=== PATIENT | female | born 1950 | race Caucasian/White ===

== ENCOUNTER → 2017-10-30 13:26 | Outpatient (CLI) | payer MEDICARE, OTHER, SELFPAY ==
[2017-10-30 15:43] LABS: Absolute Lymphocyte Count 2.55 X10^3/ul (0.83-4.51); Absolute Neutrophil Count 3.5 X10^3/uL (2.0-7.7); Basophil# 0.01 X10^3/uL; Basophil% 0.2 % (0-1); Eosinophil# 0.04 X10^3/uL; Eosinophils% 0.6 % (0-5); Hematocrit 49.3 % (37-47); Hemoglobin 16.1 g/dl (12.0-15.0); Lymphocyte # 2.55 X10^3/ul (4.0); Mean Corp Hgb Conc 32.7 g/gl (32-36); Mean Corpuscular Hgb 29.5 pg (27.0-32.0); Mean Corpuscular Volume 90.3 fL (81-99); Mean Platelet Vol. 11.5 fl (6.2-12.0); Monocyte# 0.46 X10^3/uL; Neutrophil # 3.48 X10^3/uL (2.7-7.7); Neutrophil % 53.2 % (47-70); Platelet Count 182 K/mm3 (150-450); RBC Distribution Width CV 13.7 % (11.6-14.6); RBC Distribution Width SD 44.5 fl (35.1-43.9); Red Blood Count 5.46 M/mm3 (4.2-5.4); White Blood Count 6.5 K/mm3 (4.4-11.0)
[2017-10-30 15:52] LABS: POSITIVE COUNT NO; POSITIVE DIFFERENTIAL NO; POSITIVE MORPHOLOGY NO
[2017-10-30 16:03] LABS: Hemoglobin A1c 9.7 % (4.2-6.3)
[2017-10-30 16:12] LABS: AST(SGOT) 17 U/L (15-37); Alanine Aminotransfer ALT/SGPT 35 U/L (13-56); Albumin, Serum 3.9 g/dL (3.2-5.0); Alkaline Phosphatase 64 U/L (45-117); Anion Gap 9 (5-15); BUN 14 mg/dL (7-18); BUN/Creat Ratio 16.8 RATIO (10-20); Calcium,Total 9.1 mg/dL (8.5-10.1); Chloride 103 mmol/L (98-107); Cholesterol 188 mg/dL (200); Creatinine, Serum 0.83 mg/dL (0.55-1.02); EST Glomerular Filtration Rate 72 mL/min (>60); Est Glom Filt Rate - Afr Amer 88 mL/min (>60); Globulin 3.9 g/dL (2.2-4.2); Glucose 191 mg/dL (74-106); High Density Lipoprotein 40 mg/dL; Potassium 3.9 mmol/L (3.5-5.1); Protein, Total 7.8 g/dL (6.4-8.2); Sodium Level 140 mmol/L (136-145); Thyroid Stim Hormone (TSH) 2.02 uIU/mL (0.358-3.74); Triglycerides 100 mg/dL; Very Low Density Lipoprotein 20 mg/dL (5-40)
== END ==
PROVIDERS: Visit Provider Family Medicine
DX: I10 Essential (primary) hypertension (principal)
CPT/HCPCS: 36415; 80053; 80061; 83036; 84443; 85025

== ENCOUNTER → 2017-11-22 10:19 | Outpatient (CLI) | payer MEDICARE, OTHER, SELFPAY ==
--- NOTE | 2017-11-22 10:23 | BI_ITS ---
MAMMOGRAPHY - BILATERAL SCREENING REASON FOR EXAM: Female, 67 years old. Routine annual screening examination. PERTINENT HISTORY: Mother with breast cancer. TECHNIQUE: Digital bilateral breast meggan (3D mammographic acquisition) in the CC and MLO projections. 2-D mediolateral oblique (MLO) and craniocaudad (CC) views of both breasts were obtained. CAD: Full Field Digital Mammography with Computer Added Detection was performed. COMPARISON: Comparison is made with prior examination dated August 06, 2014 and December 05, 2012. FINDINGS: Breast Composition: There are scattered areas of fibroglandular density. There are no dominant masses or suspicious calcifications. Stable appearance of the small bilateral axillary lymph nodes. No other significant abnormalities are identified. There has been no significant change since the prior study. BI/SCREENING MAMM (CAD), BILAT IMPRESSION: Stable bilateral screening mammogram. Yearly follow-up mammogram recommended. (A) ASSESSMENT CATEGORY: BIRADS Category 1: Negative. A letter regarding these results will be sent to the patient by the facility within 30 days. Approximately 10% of breast cancers are not detected by mammography. A normal mammogram should not delay biopsy of a clinically suspicious abnormality. [id number] Electronically Signed: Yonathan Liao MD at 11:34 EDT Tel [phone], Service support ,
== END ==
PROVIDERS: Family Provider Family Medicine; PCP Family Medicine; Visit Provider Family Medicine
DX: Z12.31 Encounter for screening mammogram for malignant neoplasm of breast (principal)
CPT/HCPCS: 77063; 77067

== ENCOUNTER → 2018-01-31 09:41 | Outpatient (CLI) | payer MEDICARE, OTHER, SELFPAY ==
[2018-01-31 12:36] LABS: Cholesterol 181 mg/dL (200); High Density Lipoprotein 43 mg/dL; Triglycerides 99 mg/dL; Very Low Density Lipoprotein 20 mg/dL (5-40)
[2018-01-31 12:43] LABS: Microalbumin:Creatinine Ratio 9.6 mg/g CRE (<30 mg/g CRE)
== END ==
PROVIDERS: Family Provider Family Medicine; PCP Family Medicine; Visit Provider Family Medicine
DX: E11.9 Type 2 diabetes mellitus without complications (principal)
CPT/HCPCS: 36415; 80061; 82043; 82570

== ENCOUNTER 2018-03-28 11:00 | Outpatient (RCR) | payer MEDICARE, OTHER, SELFPAY | END 2018-03-28 23:59 | LOC: DC 11:00 | PROVIDERS: Family Provider Family Medicine; PCP Family Medicine; Visit Provider Family Medicine | DX: E11.65 Type 2 diabetes mellitus with hyperglycemia (principal); Z71.3 Dietary counseling and surveillance | CPT/HCPCS: 97802; G0108 ==

== ENCOUNTER → 2019-08-07 09:10 | Outpatient (CLI) | payer MEDICARE, OTHER, SELFPAY ==
[2019-08-07 12:38] LABS: AST(SGOT) 18 U/L (15-37); Alanine Aminotransfer ALT/SGPT 25 U/L (13-56); Albumin, Serum 3.8 g/dL (3.2-5.0); Alkaline Phosphatase 55 U/L (45-117); Anion Gap 4 (5-15); BUN 14 mg/dL (7-18); BUN/Creat Ratio 19.3 RATIO (10-20); Calcium,Total 9.2 mg/dL (8.5-10.1); Chloride 107 mmol/L (98-107); Cholesterol 200 mg/dL (200); Creatinine, Serum 0.72 mg/dL (0.55-1.02); EST Glomerular Filtration Rate 85 mL/min (>60); Est Glom Filt Rate - Afr Amer 102 mL/min (>60); Globulin 3.9 g/dL (2.2-4.2); Glucose 137 mg/dL (74-106); High Density Lipoprotein 55 mg/dL; Potassium 3.7 mmol/L (3.5-5.1); Protein, Total 7.7 g/dL (6.4-8.2); Sodium Level 140 mmol/L (136-145); Triglycerides 91 mg/dL; Very Low Density Lipoprotein 18 mg/dL (5-40)
[2019-08-07 12:47] LABS: Microalbumin,Random Urine 26.3 mg/L (NO RANGE EST.); Microalbumin:Creatinine Ratio 14.6 mg/g CRE (<30 mg/g CRE)
== END ==
PROVIDERS: PCP Family Medicine; Visit Provider Family Medicine
DX: E11.9 Type 2 diabetes mellitus without complications (principal)
CPT/HCPCS: 36415; 80053; 80061; 82043; 82570

== ENCOUNTER → 2019-11-10 08:21 | Outpatient (CLI) | payer MEDICARE, OTHER, SELFPAY ==
--- NOTE | 2019-11-10 08:25 | BI_ITS ---
MAMMOGRAPHY - BILATERAL SCREENING 3-D TOMOSYNTHESIS REASON FOR EXAM: Female, 69 years old. Routine screening PERTINENT HISTORY: FAM HX MOTHER AGE 89, LOST 40# -- LT STEREO BX 2000, SKIN TAGS REMOVED 10+ YRS. AGO. TECHNIQUE: 2-D mammograms and 3-D Tomosynthesis of the breast (s) were performed. CAD was performed. COMPARISON: 11/22/2017 FINDINGS: The breast composition is composed of scattered fibroglandular density. Scattered benign calcifications are seen. No dense spiculated masses or suspicious microcalcifications are identified. No architectural distortion is identified. There is no skin thickening or retraction. There has been no significant change since the prior study. BI/SCREEN MAMM (CAD) W/MARGE BILAT IMPRESSION: No mammographic signs of malignancy. Routine yearly mammograms recommended. ASSESSMENT CATEGORY: BIRADS Category 1: Negative. A letter regarding these results will be sent to the patient by the facility within 30 days. FOLLOW UP RECOMMENDATION: Yearly follow up mammogram recommended. (A) Approximately 10% of breast cancers are not detected by mammography. A normal mammogram should not delay biopsy of a clinically suspicious abnormality. Electronically Signed: Morris Lopez MD at 12:05 EDT , Service support ,
== END ==
PROVIDERS: PCP Family Medicine; Referring Provider Family Medicine; Visit Provider Family Medicine
DX: Z12.31 Encounter for screening mammogram for malignant neoplasm of breast (principal)
CPT/HCPCS: 77063; 77067

== ENCOUNTER → 2020-08-16 07:32 | Outpatient (CLI) | payer MEDICARE, OTHER, SELFPAY ==
[2020-08-16 10:10] LABS: Absolute Lymphocyte Count 2.69 X10^3/uL (0.83-4.51); Absolute Neutrophil Count 2.5 X10^3/uL (2.0-7.7); Basophil# 0.04 X10^3/uL; Basophil% 0.7 % (0-1); Eosinophil# 0.08 X10^3/uL; Eosinophils% 1.4 % (0-5); Lymphocyte # 2.69 X10^3/ul (4.0); Lymphocyte % 46.1 % (19-41); Mean Corp Hgb Conc 31.9 g/dL (32-36); Mean Corpuscular Hgb 29.3 pg (27.0-32.0); Mean Corpuscular Volume 91.8 fL (81-99); Mean Platelet Vol. 10.6 fl (6.2-12.0); Monocyte# 0.49 X10^3/uL; Monocyte% 8.4 % (0-10); NRBC Flagged by Analyzer 0 % (0-5); Neutrophil # 2.51 X10^3/uL (2.7-7.7); Neutrophil % 43.1 % (47-70); Platelet Count 176 K/mm3 (150-450); RBC Distribution Width CV 13.3 % (11.6-14.6); RBC Distribution Width SD 45.6 fl (35.1-43.9); Red Blood Count 5.12 M/mm3 (4.2-5.4); White Blood Count 5.8 K/mm3 (4.4-11.0)
[2020-08-16 10:32] LABS: AST(SGOT) 15 U/L (15-37); Alanine Aminotransfer ALT/SGPT 27 U/L (13-56); Albumin, Serum 3.5 g/dL (3.2-5.0); Alkaline Phosphatase 64 U/L (45-117); Anion Gap 3 (5-15); BUN 16 mg/dL (7-18); BUN/Creat Ratio 21.1 RATIO (10-20); Calcium,Total 9.3 mg/dL (8.5-10.1); Chloride 107 mmol/L (98-107); Cholesterol 196 mg/dL (200); Creatinine, Serum 0.76 mg/dL (0.55-1.02); EST Glomerular Filtration Rate 80 mL/min (>60); Est Glom Filt Rate - Afr Amer 97 mL/min (>60); Globulin 3.5 g/dL (2.2-4.2); Glucose 156 mg/dL (74-106); High Density Lipoprotein 49 mg/dL; Potassium 3.5 mmol/L (3.5-5.1); Sodium Level 142 mmol/L (136-145); Triglycerides 114 mg/dL; Very Low Density Lipoprotein 23 mg/dL (5-40)
[2020-08-16 10:55] LABS: Microalbumin,Random Urine 21.8 mg/L (NO RANGE EST.)
== END ==
PROVIDERS: PCP Family Medicine; Referring Provider Family Medicine; Visit Provider Family Medicine
DX: E11.9 Type 2 diabetes mellitus without complications (principal); I10 Essential (primary) hypertension
CPT/HCPCS: 36415; 80053; 80061; 82043; 82570; 85025

== ENCOUNTER → 2021-09-30 | Outpatient (CLI) | payer MEDICARE, OTHER, SELFPAY ==
--- NOTE | 2021-09-30 08:38 | BI_ITS ---
MAMMOGRAPHY - BILATERAL SCREENING REASON FOR EXAM: Female, 71 years old. Routine annual screening examination. PERTINENT HISTORY: Mother with breast cancer. Remote left stereotactic breast biopsy. TECHNIQUE: Digital bilateral breast marge (3D mammographic acquisition) in the CC and MLO projections. 2-D mediolateral oblique (MLO) and craniocaudad (CC) views of both breasts were obtained. CAD: Full Field Digital Mammography with Computer Added Detection was performed. COMPARISON: Comparison is made with prior study dated 11/10/2019 and 11/22/2012. FINDINGS: Breast Composition: There are scattered areas of fibroglandular density. There are no dominant masses or suspicious calcifications. Stable small benign appearing bilateral axillary lymph nodes. No other significant abnormalities are identified. There has been no significant change since the prior study. BI/SCRN MAMM (CAD)W/MARGE BILAT IMPRESSION: Stable bilateral screening mammogram. Yearly follow-up mammogram recommended. (A) ASSESSMENT CATEGORY: BIRADS Category 2: Benign. A letter regarding these results will be sent to the patient by the facility within 30 days. Approximately 10% of breast cancers are not detected by mammography. A normal mammogram should not delay biopsy of a clinically suspicious abnormality. [id number] Electronically Signed: Yonathan Liao MD at 9:53 EDT ,
== END | disposition home or self-care (01) ==
LOC: OPBI 08:36
PROVIDERS: PCP Family Medicine; Visit Provider Family Medicine
DX: Z12.31 Encounter for screening mammogram for malignant neoplasm of breast (principal); Z80.3 Family history of malignant neoplasm of breast
CPT/HCPCS: 77063; 77067

== ENCOUNTER → 2023-01-18 | Outpatient (CLI) | payer MEDICARE, OTHER, SELFPAY ==
[2023-01-18 12:18] LABS: Absolute Lymphocyte Count 2.24 X10^3/uL (0.83-4.51); Absolute Neutrophil Count 3.2 X10^3/uL (2.0-7.7); Basophil# 0.03 X10^3/uL; Basophil% 0.5 % (0-1); Eosinophil# 0.07 X10^3/uL; Eosinophils% 1.2 % (0-5); Hematocrit 48.2 % (37-47); Hemoglobin 15.5 g/dL (12.0-15.0); Lymphocyte # 2.24 X10^3/ul (0.83-4.51); Lymphocyte % 37.5 % (19-41); Mean Corp Hgb Conc 32.2 g/dL (32-36); Mean Corpuscular Hgb 30.3 pg (27.0-32.0); Mean Corpuscular Volume 94.3 fL (81-99); Mean Platelet Vol. 11.1 fl (6.2-12.0); Monocyte# 0.46 X10^3/uL; Monocyte% 7.7 % (0-10); NRBC Flagged by Analyzer 0 % (0-5); Neutrophil # 3.16 X10^3/uL (2.7-7.7); Neutrophil % 52.9 % (47-70); Platelet Count 167 K/mm3 (150-450); RBC Distribution Width SD 44.9 fl (35.1-43.9); Red Blood Count 5.11 M/mm3 (4.2-5.4)
[2023-01-18 13:48] LABS: AST(SGOT) 18 U/L (15-37); Alanine Aminotransfer ALT/SGPT 26 U/L (13-56); Albumin, Serum 3.6 g/dL (3.2-5.0); Alkaline Phosphatase 61 U/L (45-117); Anion Gap 6 (5-15); BUN 15 mg/dL (7-18); BUN/Creat Ratio 18.2 RATIO (10-20); Calcium,Total 9.6 mg/dL (8.5-10.1); Chloride 106 mmol/L (98-107); Cholesterol 197 mg/dL (200); Creatinine, Serum 0.82 mg/dL (0.55-1.02); EST Glomerular Filtration Rate 72 mL/min (>60); Est Glom Filt Rate - Afr Amer 87 mL/min (>60); Globulin 3.7 g/dL (2.2-4.2); Glucose 169 mg/dL (74-106); High Density Lipoprotein 45 mg/dL; Potassium 3.6 mmol/L (3.5-5.1); Protein, Total 7.3 g/dL (6.4-8.2); Sodium Level 139 mmol/L (136-145); Triglycerides 116 mg/dL; Very Low Density Lipoprotein 23 mg/dL (5-40)
[2023-01-18 14:26] LABS: Microalbumin,Random Urine 18.5 mg/L (NO RANGE EST.)
== END | disposition home or self-care (01) ==
LOC: BFHLAB 09:40
PROVIDERS: PCP Family Medicine; Referring Provider Family Medicine; Visit Provider Family Medicine
DX: Z00.00 Encounter for general adult medical examination without abnormal findings (principal); E11.9 Type 2 diabetes mellitus without complications
CPT/HCPCS: 36415; 80053; 80061; 82043; 82570; 85025

== ENCOUNTER → 2023-02-14 | Outpatient (CLI) | payer MEDICARE, OTHER, SELFPAY ==
--- NOTE | 2023-02-14 08:46 | BI_ITS ---
MAMMOGRAPHY - BILATERAL SCREENING REASON FOR EXAM: Female, 72 years old. Routine annual screening examination. PERTINENT HISTORY: Mother with breast cancer. Remote left stereotactic breast biopsy. TECHNIQUE: Digital bilateral breast marge (3D mammographic acquisition) in the CC and MLO projections. 2-D mediolateral oblique (MLO) and craniocaudad (CC) views of both breasts were obtained. CAD: Full Field Digital Mammography with Computer Added Detection was performed. COMPARISON: Comparison is made with prior study dated September 30, 2021 and November 10, 2019. FINDINGS: Breast Composition: There are scattered areas of fibroglandular density. There are no dominant masses or suspicious calcifications. Stable benign-appearing bilateral axillary lymph nodes. No other significant abnormalities are identified. There has been no significant change since the prior study. BI/SCRN MAMM (CAD)W/MARGE BILAT IMPRESSION: Stable bilateral screening mammogram. Yearly follow-up mammogram recommended. (A) ASSESSMENT CATEGORY: BIRADS Category 2: Benign. A letter regarding these results will be sent to the patient by the facility within 30 days. Approximately 10% of breast cancers are not detected by mammography. A normal mammogram should not delay biopsy of a clinically suspicious abnormality. [id number] Electronically Signed: Yonathan Liao MD at 9:55 EDT ,
== END | disposition home or self-care (01) ==
LOC: OPBI 08:44
PROVIDERS: PCP Family Medicine; Referring Provider Family Medicine; Visit Provider Family Medicine
DX: Z12.31 Encounter for screening mammogram for malignant neoplasm of breast (principal)
CPT/HCPCS: 77063; 77067

== ENCOUNTER → 2023-05-17 | Outpatient (CLI) | payer MEDICARE, OTHER, SELFPAY ==
--- OUTSIDE RECORDS SUMMARY | 2023-05-17 13:39 | XMS RPT_ITS | CCD ---
Author Name Unknown Address [address] [place] [id number] Organization [facility] Results Test Name Value Interpretation Reference Range Facil ity Summary Purpose Family History No Family History Records Found Advance Directives No Advanced Directives Records Found Additional Source Comments INFORMATION SOURCE (unrecogn ized section and content) FOR RECORDS PERTAINING TO PATIENTS WHO ARE OR HAVE BEEN ENROLLED IN A CHEMICAL DEPENDENCY/SUBSTANCEABUSE PROGRAM, SOME INFORMATION MAY BE OMITTED. This clinical summary was aggregated from multiple sources. Caution should be exercised in using it in the provision of clinical care. This summary normalizes information from multiple sources, and as a consequence, information in this document may materially change the coding, format and clinical context of patient data. In addition, data may be omitted in some cases. CLINICAL DECISIONS SHOULD BE BASED ON THE PRIMARY CLINICAL RECORDS. [facility] provides no warranty or guarantee of the accuracy or completeness of information in this document.
[2023-05-17 16:00] LABS: Thyroid Stim Hormone (TSH) 2.12 uIU/mL (0.358-3.74)
== END | disposition home or self-care (01) ==
LOC: BFHLAB 13:06
PROVIDERS: PCP Family Medicine; Visit Provider Family Medicine
DX: L65.9 Nonscarring hair loss, unspecified (principal)
CPT/HCPCS: 36415; 84443

== ENCOUNTER → 2024-03-05 | Outpatient (CLI) | payer MEDICARE, OTHER, SELFPAY ==
[2024-03-05 12:23] LABS: Absolute Lymphocyte Count 2.17 X10^3/uL (0.83-4.51); Absolute Neutrophil Count 2.6 X10^3/uL (2.0-7.7); Basophil# 0.03 X10^3/uL; Basophil% 0.6 % (0-1); Eosinophil# 0.04 X10^3/uL; Eosinophils% 0.8 % (0-5); Hematocrit 46.3 % (37-47); Hemoglobin 15.3 g/dL (12.0-15.0); Lymphocyte # 2.17 X10^3/ul (0.83-4.51); Lymphocyte % 40.8 % (19-41); Mean Corpuscular Hgb 30.2 pg (27.0-32.0); Mean Corpuscular Volume 91.5 fL (81-99); Mean Platelet Vol. 11.1 fl (6.2-12.0); Monocyte# 0.44 X10^3/uL; Monocyte% 8.3 % (0-10); NRBC Flagged by Analyzer 0 % (0-5); Neutrophil # 2.63 X10^3/uL (2.7-7.7); Neutrophil % 49.3 % (47-70); Platelet Count 165 K/mm3 (150-450); RBC Distribution Width CV 13.2 % (11.6-14.6); RBC Distribution Width SD 44.6 fl (35.1-43.9); Red Blood Count 5.06 M/mm3 (4.2-5.4); White Blood Count 5.3 K/mm3 (4.4-11.0)
[2024-03-05 12:41] LABS: Microalbumin,Random Urine 22.9 mg/L (NO RANGE EST.); Microalbumin:Creatinine Ratio 12.3 mg/g CRE (<30 mg/g CRE)
[2024-03-05 13:15] LABS: AST(SGOT) 15 U/L (15-37); Alanine Aminotransfer ALT/SGPT 20 U/L (13-56); Albumin, Serum 3.7 g/dL (3.2-5.0); Alkaline Phosphatase 53 U/L (45-117); Anion Gap 6 (5-15); BUN 15 mg/dL (7-18); BUN/Creat Ratio 19.5 RATIO (10-20); Calcium,Total 9.6 mg/dL (8.5-10.1); Chloride 109 mmol/L (98-107); Cholesterol 191 mg/dL (200); Creatinine, Serum 0.77 mg/dL (0.55-1.02); EST Glomerular Filtration Rate 78 mL/min (>60); Est Glom Filt Rate - Afr Amer 94 mL/min (>60); Globulin 3.6 g/dL (2.2-4.2); Glucose 120 mg/dL (74-106); High Density Lipoprotein 53 mg/dL; Protein, Total 7.3 g/dL (6.4-8.2); Sodium Level 141 mmol/L (136-145); Triglycerides 97 mg/dL; Very Low Density Lipoprotein 19 mg/dL (5-40)
== END | disposition home or self-care (01) ==
LOC: BFHLAB 09:58
PROVIDERS: PCP Family Medicine; Referring Provider Family Medicine; Visit Provider Family Medicine
DX: Z00.00 Encounter for general adult medical examination without abnormal findings (principal); E11.9 Type 2 diabetes mellitus without complications
CPT/HCPCS: 36415; 80053; 80061; 82043; 82570; 85025

== ENCOUNTER → 2024-03-06 | Outpatient (CLI) | payer MEDICARE, OTHER, SELFPAY ==
--- NOTE | 2024-03-06 08:34 | BI_ITS ---
MAMMOGRAPHY - BILATERAL SCREENING 3-D TOMOSYNTHESIS REASON FOR EXAM: Female, 74 years old. SCREENING PERTINENT HISTORY: No significant family history. TECHNIQUE: 2-D mammograms and 3-D Tomosynthesis of the breast (s) were performed. CAD was performed. COMPARISON: 02/14/2023 FINDINGS: The breast composition is composed of scattered fibroglandular density. Scattered benign calcifications are seen. No dominant mass right breast. 2 cm oval obscured equal density mass in the retroareolar left breast at mid depth and focal compression views recommended for further evaluation. No suspicious calcifications.. No architectural distortion is identified. There is no skin thickening or retraction. BI/SCRN MAMM (CAD)W/MARGE BILAT IMPRESSION: Further imaging evaluation is recommended. ASSESSMENT CATEGORY: BIRADS Category 0: Incomplete. Need additional imaging evaluation as above. A letter regarding these results will be sent to the patient by the facility within 30 days. FOLLOW UP RECOMMENDATION: Additional imaging recommended as above. (E) Approximately 10% of breast cancers are not detected by mammography. A normal mammogram should not delay biopsy of a clinically suspicious abnormality. Electronically Signed: Alexis Dumont MD at 13:53 EDT ,
== END | disposition home or self-care (01) ==
LOC: OPBI 08:23
PROVIDERS: PCP Family Medicine; Referring Provider Family Medicine; Visit Provider Family Medicine
DX: Z12.31 Encounter for screening mammogram for malignant neoplasm of breast (principal)
CPT/HCPCS: 77063; 77067

== ENCOUNTER → 2024-03-13 | Outpatient (CLI) | payer MEDICARE, OTHER, SELFPAY ==
--- NOTE | 2024-03-13 09:26 | BI_ITS ---
MAMMOGRAPHY - UNILATERAL DIAGNOSTIC: LEFT BREAST REASON FOR EXAM: Female, 74 years old. Abnormal screening mammogram. PERTINENT HISTORY: Non-contributory. TECHNIQUE: Compression spot views in the mediolateral oblique and craniocaudal projections were obtained. CAD: Full Field Digital Mammography with Computer Added Detection was performed. COMPARISON: Comparison is made with prior study dated March 06, 2024. FINDINGS: Breast Composition: There are scattered areas of fibroglandular density. There are no dominant masses or suspicious calcifications. No other significant abnormalities are identified. BI/DIAG MAMM W/CAD, UNILAT IMPRESSION: Negative unilateral diagnostic mammogram. Sonographic correlation recommended. ASSESSMENT CATEGORY: BIRADS Category 0: Incomplete. Need additional imaging evaluation. A letter regarding these results will be sent to the patient by the facility within 30 days. Approximately 10% of breast cancers are not detected by mammography. A normal mammogram should not delay biopsy of a clinically suspicious abnormality. Electronically Signed: Yonathan Liao MD at 10:37 EDT ,
--- NOTE | 2024-03-13 09:26 | US_ITS ---
STUDY: ULTRASOUND BREAST - LEFT REASON FOR EXAM: Female, 74 years old. Abnormal screening mammogram. TECHNIQUE: Axial and longitudinal images of the LEFT breast were performed with a high resolution ultrasound transducer. # OF IMAGES: 21 COMPARISON: Comparison is made with prior mammogram done earlier today as well as prior mammogram dated March 06, 2024. FINDINGS: LEFT Breast: The outer lateral aspect of the right breast was examined with ultrasound. There is a 6 mm x 7 mm x 3 mm benign appearing lymph node at the 3:00 position of the breast at 6 cm from the nipple. US/Breast Limited Unilateral IMPRESSION: Findings suggestive of a 6 mm x 7 mm x 3 mm benign-appearing lymph node at the 3:00 position of the breast at 6 cm from the nipple. ASSESSMENT CATEGORY: BIRADS Category 2: Benign. A letter regarding these results will be sent to the patient by the facility within 30 days. Electronically Signed: Yonathan Liao MD at 13:18 EDT ,
--- OUTSIDE RECORDS SUMMARY | 2024-03-13 10:34 | XMS RPT_ITS | CCD ---
Author Organization [facility] SEMI AUTOMATIC SEWING MACHINE OPERATOR [facility] Results Test Name Value Interpretation Reference Range Facil ity CNPNon 01-14-2020 CNPN Telephone (ENDMED) SYLVIA KEITA ([id number]) 1950 F Date Time Provider Department 01/14/20 VIBHA YORK) LILLIE During your visit today, we recorded the following information about you: Iram Leblanc Elaina 01/14/2020 1:52 PM Signed Received Eye exam note from [facility]. updated. Placed at desk for review. Thank you. Vibha York APRN.YON 01/14/2020 2:11 PM Signed Report reviewed. No retinopathy noted. Sent for scanning. 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] 07/27/2005 Type 2 diabetes mellitus without complication, *11/20/2019 Encounter Status:Closed by VIBHA YORK on 01/14/20 Normal [facility] Albumin/Creat Ratioon 2019 Albumin Urine Random 12.1 mg/L Normal [facility] Comment on above: Performed By: #### U ACR #### [facility] [address] [id number] Albumin/Creat Ratio 9 mg/g Normal <30 [facility] Comment on above: Result Comment: Adul t Male and Female Nephrotic Criteria: <30 mg/g is considered normal to mildly increased 30-300 mg/g is considered moderately increased >300 mg/g is considered severely increased KDIGO. (2013). KDIGO 2012 Clinical Practice Guideline for the Evaluation and Management of Chronic Kidney Disease. Official Journal of the International Society of Nephrology, 3(1), 1-150. Performed By: #### U ACR #### [facility] [address] [address] Creatinine,Urine,Ra n 142.3 mg/dL Normal 20-300 [facility] Comment on above: Performed By: #### U ACR #### [place] [id number] [place] [address] Comp Metabolic Panelon 11-23 Albumin [Mass/Vol] 4.4 g/dL Normal 3.9-4.9 [facility] Comment on above: Performed By: #### T SH, LIPB, CMP #### [facility] [address] [address] ALP [Catalytic activity/Vol] 48 U/L Normal 34-123 [facility] Comment on above: Performed By: #### T SH, LIPB, CMP #### [facility] [address] [address] ALT [Catalytic activity/Vol] 15 U/L Normal 7-38 [facility] Comment on above: Performed By: #### T SH, LIPB, CMP #### [facility] [address] [address] Anion gap [Moles/Vol] 10 mmol/L Normal 9-18 [facility] Comment on above: Performed By: #### T SH, LIPB, CMP #### [facility] [address] [address] [phone] AST [Catalytic activity/Vol] 19 U/L Normal 13-35 [facility] Comment on above: Performed By: #### T TERELL, LIPB, CMP #### [place] [id number] [place] [address] Bilirubin [Mass/Vol] 0.6 mg/dL Normal 0.2-1.3 [facility] Comment on above: Performed By: #### T TERELL, LIPB, CMP #### [place] [address] Calcium [Mass/Vol] 9.8 mg/dL Normal 8.5-10.2 [facility] Comment on above: Performed By: #### T TERELL, LIPB, CMP #### [place] [phone] Chloride [Moles/Vol] 105 mmol/L Normal 97-105 [facility] Comment on above: Performed By: #### T TERELL, LIPB, CMP #### [place] [address] CO2 [Moles/Vol] 28 mmol/L Normal 22-30 [facility] Comment on above: Performed By: #### T SH, LIPB, CMP #### [place] [address] Creatinine [Mass/Vol] 0.73 mg/dL Normal 0.58-0.96 [facility] Comment on above: Performed By: #### T SH, LIPB, CMP #### [place] [id number] [place] [address] eGFR- Amer. >60 Normal [facility] Comment on above: Performed By: #### T SH, LIPB, CMP #### [place] [id number] [place] [address] GFR/1.73 sq M predicted among non-blacks MDRD (S/P/Bld) [Vol rate/Area] mL/min/{1.73_m2} Normal [facility] Comment on above: Result Comment: eGFR (Estimated GFR) Units of measure: mL/min/1.73 meters squared eGFR is derived from the reexpressed MDRD Study equation using the following parameters: serum creatinine, age, gender and race. The creatinine assay has been calibrated to be traceable to IDMS. An eGFR <60 mL/min/1.73m2 for >3 months is consistent with chronic kidney disease. Refer to KDOQI guidelines for clinical interpretation. In patients with unstable renal function, e.g. those with acute kidney injury, the eGFR may not accurately reflect actual GFR. Performed By: #### T JESSICA FIGUEREDO, CMP #### [facility] [address] [place], [place] [address] Glucose [Mass/Vol] 140 mg/dL High 74-99 [facility] Comment on above: Result Comment: The [place] Diabetes Association (ADA) provides guidance for cutoff values for fasting glucose and random glucose. The ADA defines fasting as no caloric intake for at least 8 hours. Fasting plasma glucose results between 100 to 125 mg/dL indicate increased risk for diabetes (prediabetes). Fasting plasma glucose results greater than or equal to 126 mg/dL meet the criteria for diagnosis of diabetes. In the absence of unequivocal hyperglycemia, results should be confirmed by repeat testing. In a patient with classic symptoms of hyperglycemia or hyperglycemic crisis, random plasma glucose results greater than or equal to 200 mg/dL meet the criteria for diagnosis of diabetes. Reference: Standards of Medical Care in Diabetes 2016, [place] Diabetes Association. Diabetes Care. 2016.39(Suppl 1). Performed By: #### T FABIO FIGUEREDOB, CMP #### [facility] [address] [place], [place] [address] Potassium [Moles/Vol] 4.1 mmol/L Normal 3.7-5.1 [facility] Comment on above: Performed By: #### T FABIO FIGUEREDOB, CMP #### [facility] [address] [place], [place] [address] Protein [Mass/Vol] 6.9 g/dL Normal 6.3-8.0 [facility] Comment on above: Performed By: #### T SH, LIPB, CMP #### [facility] [address] [place], [place] [address] Sodium [Moles/Vol] 143 mmol/L Normal 136-144 [facility] Comment on above: Performed By: #### T SH, LIPB, CMP #### [facility] [address] [place], [place] [address] Urea nitrogen [Mass/Vol] 13 mg/dL Normal 7-21 [facility] Comment on above: Performed By: #### T SH, LIPB, CMP #### [place] [id number] [place], [place] [address] Lipid Panel, [place] 020 Cholesterol [Mass/Vol] 190 mg/dL Normal <200 [facility] Comment on above: Result Comment: <200 mg/dL, Desirable 200-239 mg/dL, Borderline high >239 mg/dL, High Performed By: #### T SH, LIPB, CMP #### [address] [place] [address] [place], [place] [address] Cholesterol in HDL [Mass/Vol] 45 mg/dL Normal >39 [facility] Comment on above: Result Comment: 40-5 9 mg/dL, Acceptable >59 mg/dL, High: Negative risk factor for coronary heart disease <40 mg/dL, Low: Positive risk factor for coronary heart disease Performed By: #### T SH, LIPB, CMP #### [facility] [address] [place], [place] [address] Cholesterol in LDL [Mass/Vol] 121 mg/dL High <100 [facility] Comment on above: Result Comment: <100 mg/dL, Optimal 100-129 mg/dL, Near optimal/above optimal 130-159 mg/dL, Borderline high 160-189 mg/dL, High >189 mg/dL, Very high Secondary prevention optimal LDL Cholesterol levels are recommended to be < 70 mg/dL Performed By: #### T SH, LIPB, CMP #### [place] [phone] [place] [phone] Fasting Time 14 hrs Normal [facility] Comment on above: Performed By: #### T TERELL LIPB, CMP #### [place] [phone] [place] [phone] LDL:HDL Ratio 2.69 High <2.54 [facility] Comment on above: Result Comment: Raulitoe ophelia: 1. National Cholesterol Education Program ATP III Guideline At-A-Glance Quick Desk Reference: National Heart, Lung, and Blood [place]. National Institutes of Health. 2001: NIH Publication No. 01-3305. 2. An International Atherosclerosis Society position paper: global recommendations for the management of dyslipidemia: executive summary, Atherosclerosis. 2014: 232(2):410-413. Performed By: #### T TERELL, LIPB, CMP #### [place] [phone] Non HDL Cholesterol 145 mg/dL High <130 [facility] Comment on above: Result Comment: <130 mg/dL, Optimal 130-159 mg/dL, Near optimal/above optimal 160-189 mg/dL, Borderline high 190-219 mg/dL, High >219 mg/dL, Very high Secondary prevention optimal non HDL Cholesterol levels are recommended to be < 100 mg/dL Performed By: #### T TERELL, LIPB, CMP #### [place] [id number] [place] [phone] TC:HDL Ratio 4.22 Normal <5.10 [facility] Comment on above: Performed By: #### T TERELL, LIPB, CMP #### [place] [phone] [place] [phone] Triglyceride [Mass/Vol] 119 mg/dL Normal <150 [facility] Comment on above: Result Comment: <150 mg/dL, Normal 150-199 mg/dL, Borderline high 200-499 mg/dL, High >499 mg/dL, Very high Performed By: #### T SH, LIPB, CMP #### [place] [phone] [facility] [place] [place] [address] VLDL Cholesterol 24 mg/dL Normal <30 [facility] Comment on above: Performed By: #### T JESSICA FIGUEREDO, CMP #### [facility] [address] [place], [place] [address] TSHon 11-24-2019 TSH Qn 4.330 uU/mL High 0.270-4.200 [facility] Comment on above: Performed By: #### T JESSICA FIGUEREDO, CMP #### [facility] [address] [place], [place] [address] CNOVon 11-20-2019 CNOV Office Visit (ENDMED ) SYLVIA KEITA ([id number]) 1950 F Date Time Provider Department 11/20/19 9:00 AM VIBHA YORK (JOEY) LILLIE During your visit today, we recorded the following information about you: Pulse Blood pressure Weight Height 72/minute 149/83 80.1 kg 1.636 m Vibha York APRN.CNP 11/20/2019 10:10 AM Signed Reason for Consultation: DM Type 2 Referring Physician: SELF HISTORY OF PRESENT ILLNESS; Ms. Keita is a 69 year old female presenting as a new patient to me regarding DM Type 2. She was initially diagnosed with diabetes in 2017. She does have a family history of diabetes mellitus in her Grandparents. The patient has no known microvascular complications of diabetes. Sylvia has no know macrovascular complications of diabetes. She is not currently on pharmacologic therapy for diabetes. A1C 6.5 today. Her current diabetes regimen is nothing. Regarding symptoms of hyperglycemia, she is not experiencing any symptoms such as polyuria, polydipsia, nocturia or rapid weight loss or blurry vision. Last a1c at PCP was 6.3 in July. Stopped Metformin a few weeks ago due to hearing it causing liver damage and recall was taking 1000 mg twice daily prior to this. Prefers to manage diabetes with diet and exercise. Dietary History is as follows: Breakfast: doesn't usually eat this Lunch: Yogurt with strawberries, orange, peaches Dinner: Whole grain crackers with peanut butter Snacks: handful of sea salt chips, or popcorn at times, sometimes will drink sugar free madina Cut back on bread. Exercise: Has stationary bike in basement that she's not using. Push mows her lawn and likes to clean house, up and down stairs a lot during the day, like doing yard stuff outside. Sylvia is checking her blood glucose about 1 time daily. Usually in the AM occasionally later in the day. She did not bring a logbook today for review: ? Fastin mg/dL on Sunday had 83 last month fasting. Hypoglycemia frequency: denies Hypoglycemia awareness: Yes Overall, the patient has no acute complaints at this time. 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 0 No current facility-administered medications for this visit. Allergies As of Date: 11/20/2019 (No Known Allergies) Reviewed 07/27/2005 REVIEW OF SYSTEMS: General: no fever, chills or acute changes in weight in the last 6 months Skin: no rashes, pruritis or dry skin Eyes: no blurred or double vision or eye pain Cardiac: denies chest pain, heart palpitations or orthopnea Pulmonary: denies wheezing, productive cough or exertional dyspnea GI: denies nausea, vomiting, diarrhea or constipation Neuro: denies numbnes/tingling in hands or feet Musc: denies history of upper or lower extremity weakness Endocrine: denies polyuria, polydipsia, nocturia, blurry vision or excessive fatigue Hematology: Negative for anemia, easy bleeding and bruising. PHYSICAL EXAM: BP 149/83 (BP Site: Left Arm, BP Position: Sitting, BP Cuff Size: Regular Adult) Pulse 72 Ht 163.6 cm (5' 4.41 ) Wt 80.1 kg (176 lb 9.6 oz) SpO2 98% BMI 29.93 kg/m2 Physical Exam Constitutional: General: She is not in acute distress. Appearance: Normal appearance. HENT: Head: Normocephalic and atraumatic. Cardiovascular: Pulses: Normal pulses. Heart sounds: Normal heart sounds. Pulmonary: Effort: Pulmonary effort is normal. Breath sounds: Normal breath sounds. Skin: General: Skin is warm and dry. Neurological: Mental Status: She is alert and oriented to person, place, and time. Psychiatric: Mood and Affect: Mood normal. Behavior: Behavior normal. Feet:Shoes and socks removed, No deformities, ulcers, calluses and sensitive to 10 gm monofilament DATA: No results found for: CREAT No results found for: HBA1C) No components found for: URINEALBUMIN No results found for: CHOL No results found for: HDL No results found for: LDL No results found for: TG IMPRESSION: Ms. Keita is a 69 year old female here for evaluation of DM Type 2 complicated by None. RECOMMENDATIONS: (E11.9) Type 2 diabetes mellitus without complication, without long-term current use of insulin (HCC) (primary encounter diagnosis) Comment: Glycemic control is stable. Discussed metformin and the recall. No indication that metformin causes liver damage and the recall was only certain manufacturers. She would still like to work on lifestyle measures alone and avoid metformin at this time. Plan: HEMOGLOBIN A1C (POC), COMP METABOLIC PANEL, LIPID PANEL BASIC, ALBUMIN/CREAT RATIO RND UR, TSH BLD Ok to stay off metformin. Have labs done within the next week. Follow up in 3 month. If she remains stable will then have her return to PCP for monitoring Notify me if sugar are consistently over 150. Have a copy of the eye exam sent to us. TEACHING PROVIDER (Physician/PA/WAGON DRILLER) NOTE OF PERSONAL INVOLVEMENT IN CARE: I have personally seen and examined the patient and performed the medical decision-making components. I have reviewed the Advanced Practice Registered Nurse (WAGON DRILLER) Student's documentation and verified the findings in the note as written. Any additions or changes are noted in bold/italics. 45 minutes spent in total with patient. Vibha York APRN, NP-C, CDE Endocrinology [facility]/[address] [address] Fax: Vibha York APRN.PHYSICAL CHEMISTRY TEACHER 11/20/2019 9:43 AM Addendum 1. Ok to stay off metformin. 2. Have labs done within the next week. 3. Follow up in 3 month. 4 Notify me if sugar are consistently over 150. 5. Have a copy of the eye exam sent to us. Vibha York APRN, NP-C, CDE Endocrinology [facility]/[place] [address] Fax: Referring Provider: SELF [200] Allergies As of Date: 11/20/2019 Noted Allergy Reaction CODEINE 11/20/2019 8 - GI Upset Date Reviewed: 11/20/2019 Reviewed by: Vibha York - Fully Assessed Reason for Visit: Diabetes [34] Primary Visit Diagnosis:Type 2 diabetes mellitus without complication, without long-term current use of insulin (HCC) [E11.9] Order(s):HEMOGLOBIN A1C (POC) [5861716] Order #: [id number]. #:[id number] COMP METABOLIC PANEL [SQCMP] Order #: [id number] FUTURE LIPID PANEL BASIC [SQLIPB] Order #: [id number] FUTURE ALBUMIN/CREAT RATIO RND UR [SQUACR] Order #: [id number] FUTURE TSH BLD [SQTSH] Order #: [id number] FUTURE Problem List As Of Date 11/20/2019 Noted Resolved MALIG NEOPLASM SKIN NEC [173.8] 07/27/2005 Type 2 diabetes mellitus without complication, *11/20/2019 Other instructions from your clinician: 1. Ok to stay off metformin. 2. Have labs done within the next week. 3. Follow up in 3 month. 4 Notify me if sugar are consistently over 150. 5. Have a copy of the eye exam sent to us. Vibha York APRN, NP-C, CDE Endocrinology [facility] [address] [place] [address], [address] [place], [place] [address] Fax: Medications Discontinued During This Encounter CENTRUM SILVER TAB 0 11/20/2019 Class: Med Update Route: ORAL Sig: Take one(1) tablet daily. Disc: Other Follow-up and Disposition History Recorded Encounter Status:Closed by VIBHA YORK on 11/20/19 Normal [facility] PROGRESSon 11-20-2019 PROGRESS HNO ID: [id number] Author: Vibha Rondon) Jaylen Service: ? Author Type: Nurse Practitioner Type: Progress Notes Filed: 11/20/2019 10:10 AM Note Text: Reason for Consultation: DM Type 2 Referring Physician: SELF HISTORY OF PRESENT ILLNESS; Ms. Keita is a 69 year old female presenting as a new patient to me regarding DM Type 2. She was initially diagnosed with diabetes in 2017. She does have a family history of diabetes mellitus in her Grandparents. The patient has no known microvascular complications of diabetes. Sylvia has no know macrovascular complications of diabetes. She is not currently on pharmacologic therapy for diabetes. A1C 6.5 today. Her current diabetes regimen is nothing. Regarding symptoms of hyperglycemia, she is not experiencing any symptoms such as polyuria, polydipsia, nocturia or rapid weight loss or blurry vision. Last a1c at PCP was 6.3 in July. Stopped Metformin a few weeks ago due to hearing it causing liver damage and recall was taking 1000 mg twice daily prior to this. Prefers to manage diabetes with diet and exercise. Dietary History is as follows: Breakfast: doesn't usually eat this Lunch: Yogurt with strawberries, orange, peaches Dinner: Whole grain crackers with peanut butter Snacks: handful of sea salt chips, or popcorn at times, sometimes will drink sugar free amdina Cut back on bread. Exercise: Has stationary bike in basement that she's not using. Push mows her lawn and likes to clean house, up and down stairs a lot during the day, like doing yard stuff outside. Sylvia is checking her blood glucose about 1 time daily. Usually in the AM occasionally later in the day. She did not bring a logbook today for review: ? Fastin mg/dL on Sunday had 83 last month fasting. Hypoglycemia frequency: denies Hypoglycemia awareness: Yes Overall, the patient has no acute complaints at this time. 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 0 No current facility-administered medications for this visit. Allergies As of Date: 11/20/2019 (No Known Allergies) Reviewed 07/27/2005 REVIEW OF SYSTEMS: General: no fever, chills or acute changes in weight in the last 6 months Skin: no rashes, pruritis or dry skin Eyes: no blurred or double vision or eye pain Cardiac: denies chest pain, heart palpitations or orthopnea Pulmonary: denies wheezing, productive cough or exertional dyspnea GI: denies nausea, vomiting, diarrhea or constipation Neuro: denies numbnes/tingling in hands or feet Musc: denies history of upper or lower extremity weakness Endocrine: denies polyuria, polydipsia, nocturia, blurry vision or excessive fatigue Hematology: Negative for anemia, easy bleeding and bruising. PHYSICAL EXAM: BP 149/83 (BP Site: Left Arm, BP Position: Sitting, BP Cuff Size: Regular Adult) Pulse 72 Ht 163.6 cm (5' 4.41 ) Wt 80.1 kg (176 lb 9.6 oz) SpO2 98% BMI 29.93 kg/m2 Physical Exam Constitutional: General: She is not in acute distress. Appearance: Normal appearance. HENT: Head: Normocephalic and atraumatic. Cardiovascular: Pulses: Normal pulses. Heart sounds: Normal heart sounds. Pulmonary: Effort: Pulmonary effort is normal. Breath sounds: Normal breath sounds. Skin: General: Skin is warm and dry. Neurological: Mental Status: She is alert and oriented to person, place, and time. Psychiatric: Mood and Affect: Mood normal. Behavior: Behavior normal. Feet:Shoes and socks removed, No deformities, ulcers, calluses and sensitive to 10 gm monofilament DATA: No results found for: CREAT No results found for: HBA1C) No components found for: URINEALBUMIN No results found for: CHOL No results found for: HDL No results found for: LDL No results found for: TG IMPRESSION: Ms. Keita is a 69 year old female here for evaluation of DM Type 2 complicated by None. RECOMMENDATIONS: (E11.9) Type 2 diabetes mellitus without complication, without long-term current use of insulin (HCC) (primary encounter diagnosis) Comment: Glycemic control is stable. Discussed metformin and the recall. No indication that metformin causes liver damage and the recall was only certain manufacturers. She would still like to work on lifestyle measures alone and avoid metformin at this time. Plan: HEMOGLOBIN A1C (POC), COMP METABOLIC PANEL, LIPID PANEL BASIC, ALBUMIN/CREAT RATIO RND UR, TSH BLD Ok to stay off metformin. Have labs done within the next week. Follow up in 3 month. If she remains stable will then have her return to PCP for monitoring Notify me if sugar are consistently over 150. Have a copy of the eye exam sent to us. TEACHING PROVIDER (Physician/PA/WAGON DRILLER) NOTE OF PERSONAL INVOLVEMENT IN CARE: I have personally seen and examined the patient and performed the medical decision-making components. I have reviewed the Advanced Practice Registered Nurse (WAGON DRILLER) Student's documentation and verified the findings in the note as written. Any additions or changes are noted in bold/italics. 45 minutes spent in total with patient. Vibha York APRN, CONSTRUCTION MGR-C, CDE Endocrinology [facility]/[address], [address] [place] [address] Fax: Normal [facility] Summary Purpose Family History No Family History Records Found Advance Directives No Advanced Directives Records Found Additional Source Comments INFORMATION SOURCE (unrecogn ized section and content) DATE CREATED AUTHOR 01/15/2020 [facility] FOR RECORDS PERTAINING TO PATIENTS WHO ARE [...] BE BASED ON THE PRIMARY CLINICAL RECORDS. [facility] [employer] [facility]. provides no warranty or guarantee of the accuracy or completeness of information in this document.
== END | disposition home or self-care (01) ==
PROVIDERS: PCP Family Medicine; Referring Provider Family Medicine; Visit Provider Family Medicine
DX: R92.8 Other abnormal and inconclusive findings on diagnostic imaging of breast (principal)
CPT/HCPCS: 76642; 77065

== ENCOUNTER → 2025-03-10 | Outpatient (CLI) | payer MEDICARE, SELFPAY ==
[2025-03-10 10:11] LABS: Hematocrit 47.5 % (37-47); Hemoglobin 15.5 g/dL (12.0-15.0); Immature Granulocytes Count 0.010 X10^3/uL (0.0-0.0); Mean Corp Hgb Conc 32.6 g/dL (32-36); Mean Corpuscular Volume 91.2 fL (81-99); Mean Platelet Vol. 10.3 fl (6.2-12.0); NRBC Flagged by Analyzer 0 % (0-5); Platelet Count 173 K/mm3 (150-450); RBC Distribution Width CV 13.4 % (11.6-14.6); RBC Distribution Width SD 45.4 fl (35.1-43.9); Red Blood Count 5.21 M/mm3 (4.2-5.4); White Blood Count 5.8 K/mm3 (4.4-11.0)
[2025-03-10 10:37] LABS: Creatinine, Urine (random) 136.00 mg/dL (28.00-217.00); Microalbumin,Random Urine 13.6 mg/L (<20 mg/L)
[2025-03-10 10:53] LABS: AST(SGOT) 23 U/L (<=31); Alanine Aminotransfer ALT/SGPT 20 U/L (<=34); Albumin, Serum 4.1 g/dL (3.4-4.8); Alkaline Phosphatase 53 U/L (35-104); Anion Gap 10 (5-15); BUN 14 mg/dL (4-19); BUN/Creat Ratio 17.5 RATIO (10-20); Calcium,Total 9.8 mg/dL (7.6-11.0); Carbon Dioxide 27.1 mmol/L (21.0-32.0); Chloride 107 mmol/L (98-108); Cholesterol 190 mg/dL (<=200); Globulin 3.1 g/dL (2.2-4.2); Glucose 120 mg/dL (70-99); Low Density Lipoprotein Calc. 121 mg/dL; Potassium 4.3 mmol/L (3.3-5.1); Triglycerides 92 mg/dL; Very Low Density Lipoprotein 18 mg/dL (5-40); cholesterol:hdl ratio screen 3.65
== END | disposition home or self-care (01) ==
LOC: MTLAB 07:59
PROVIDERS: PCP Family Medicine; Referring Provider Family Medicine; Visit Provider Family Medicine
DX: Z00.00 Encounter for general adult medical examination without abnormal findings (principal); E11.9 Type 2 diabetes mellitus without complications
CPT/HCPCS: 36415; 80053; 80061; 82043; 82570; 85025

== ENCOUNTER → 2025-03-23 | Outpatient (CLI) | payer MEDICARE, SELFPAY ==
--- NOTE | 2025-03-23 10:06 | BI_ITS ---
EXAM: SCRN MAMM (CAD)W/MARGE BILAT DATE: 03/23/2025 CLINICAL HISTORY: F, Age 75 y/o , SCREENING TECHNIQUE: Procedure Code: [id number] Modality: MG Procedure: SCRN MAMM (CAD)W/MARGE BILAT COMPARISON: Prior exam(s) were compared FINDINGS: TISSUE DENSITY: The breasts are heterogeneously dense, which may obscure small masses. Bilateral Breast Mammographic Findings: No significant masses, calcifications or other abnormalities are identified. BI/SCRN MAMM (CAD)W/MARGE BILAT IMPRESSION: No mammographic evidence of malignancy. OVERALL FINAL ASSESSMENT BI-RADS 1: NEGATIVE. RECOMMENDATION: Routine annual follow-up in 1 Year Additional Recommendation none A letter with findings and recommendations will be mailed to the patient. Reading Location: [id number]
== END | disposition home or self-care (01) ==
LOC: OPBI 10:05
PROVIDERS: PCP Family Medicine; Referring Provider Family Medicine; Visit Provider Family Medicine
DX: Z12.31 Encounter for screening mammogram for malignant neoplasm of breast (principal)
CPT/HCPCS: 77063; 77067